=== PATIENT | male | born 1960 | race Caucasian/White ===

== ENCOUNTER 2016-10-05 07:18 | Day surgery (SDC) | payer MEDICAID ==
[~2016-10-05] VITALS: Ht 172.7 cm; Wt 72.6 kg
[2016-10-05] MEDS ORDERED: AMLO2.5T45 PO (08:24)
[2016-10-05] MEDS ORDERED: IBUP-1509 PO (08:24)
[2016-10-05] MEDS ORDERED: LISI-604 PO (08:24)
[2016-10-05] MEDS ORDERED: METH10TA2 PO (08:24)
[2016-10-05 08:51] LABS: BASOPHILS % 0.9 % (0.0-2.0); HEMATOCRIT. 33.8 % (42.0-52.0); HEMOGLOBIN. 11.9 g/dL (14.0-18.0); LYMPHOCYTES % 32.2 % (20.0-50.0); MEAN CORPUSCULAR HEMOGLOBIN 30.8 pg (28.0-32.0); MEAN CORPUSCULAR VOLUME 87.4 fL (80.0-94.0); MEAN PLATELET VOLUME 7.4 fl (7.4-10.4); NEUTROPHILS % 50.9 % (40.0-76.0); PLATELET 314 x1000/uL (130-400); RED BLOOD CELL COUNT 3.87 mill/uL (4.7-6.1); RED CELL DISTRIBUTION WIDTH 12.8 % (11.6-14.6)
[2016-10-05 08:58] LABS: CLARITY URINE CLEAR (CLEAR); COLOR URINE YELLOW (YELLOW); GLUCOSE URINE NEGATIVE (NEGATIVE); KETONES URINE NEGATIVE (NEGATIVE); LEUKOCYTE ESTERASE URINE NEGATIVE (NEGATIVE); NITRITE URINE NEGATIVE (NEGATIVE); OCCULT BLOOD URINE NEGATIVE (NEGATIVE); PROTEIN URINE NEGATIVE (NEGATIVE); SPECIFIC GRAVITY URINE 1.019 (1.005-1.030); UROBILINOGEN URINE 0.2 E.U./dL (0.2-1.0)
[2016-10-05 09:04] LABS: PARTIAL THROMBOPLASTIN TIME 30.1 sec (24.0-34.0); PROTHROMBIN TIME 10.8 sec
[2016-10-05 09:10] LABS: *AMPHETAMINES SCREEN URINE PRESUMTIVE POSITIVE (NEGATIVE); *BARBITURATES SCREEN URINE NEGATIVE (NEGATIVE); *BENZODIAZEPINES SCREEN URINE PRESUMTIVE POSITIVE (NEGATIVE); *COCAINE SCREEN URINE NEGATIVE (NEGATIVE); CANNABINOID URINE SCREEN PRESUMTIVE POSITIVE (NEGATIVE); METHADONE URINE SCREEN PRESUMTIVE POSITIVE (NEGATIVE); OPIATES URINE SCREEN NEGATIVE (NEGATIVE); PHENCYCLIDINE URINE SCREEN NEGATIVE (NEGATIVE)
[2016-10-05 09:11] LABS: CHLORIDE 102 mEq/L (98-107)
[2016-10-05 09:17] LABS: CARBON DIOXIDE 30 mEq/L (21-32)
[2016-10-05] MEDS ORDERED: LACTATED RINGERS 1,000 ML IV SCH (09:30)
[2016-10-05] MEDS ORDERED: BUPIVACAINE HCL/PF 0.25% (2.5MG/ML) 10ML ONE (09:43)
[2016-10-05] MEDS ORDERED: BUPIVACAINE/EPINEPH/PF 0.25%/0.0005 10ML ONE ×2 (09:43→09:44)
[2016-10-05] MEDS ORDERED: FENTANYL CITRATE/PF 50MCG/ML 2ML VIAL ONE (09:49)
[2016-10-05] MEDS ORDERED: MIDAZOLAM HCL 2 MG/2 ML VIAL ONE ×2 (09:51→15:15)
[2016-10-05] MEDS ORDERED: PROPOFOL 200MG/20ML VIAL IV ONE (09:52)
[2016-10-05] MEDS ORDERED: ONDANSETRON HCL 4MG/2ML VIAL IV PRN ×3 (10:00→13:15)
[2016-10-05] MEDS ORDERED: HYDROCODONE/ACETAMINOPHEN 5/325MG TABLET PO PRN ×3 (10:00→13:15)
[2016-10-05] MEDS ORDERED: LIDOCAINE HCL 1% 20ML VIAL (Pyxis) INJ ONE (10:00)
[2016-10-05] MEDS ORDERED: NORMAL SALINE 0.9% 10 ML SYR ONE (10:26)
[2016-10-05] MEDS ORDERED: BACITRACIN 50,000 UNITS/VIAL ONE (10:26)
[2016-10-05] MEDS ORDERED: PHENYLEPHRINE HCL 10 MG/ML 1ML (IV VIAL) IV ONE (10:30)
[2016-10-05] MEDS ORDERED: ONDANSETRON HCL 4MG/2ML VIAL ONE (11:00)
[2016-10-05] MEDS ORDERED: KETOROLAC 30MG/ML VIAL ONE (11:00)
[2016-10-05] MEDS ORDERED: HYDROMORPHONE HCL/PF 2MG/ML (OR) ONE (12:08)
[2016-10-05] MEDS ORDERED: FLUMAZENIL 0.1 MG/ML 5ML VIAL IV ONE (12:19)
[2016-10-05] MEDS ORDERED: MORPHINE SULFATE/PF 1MG/ML 10ML AMP ONE (12:27)
[2016-10-05] MEDS ORDERED: SKIN ADHESIVE 0.7 GM EA TOP ONE (12:33)
[2016-10-05] MEDS ORDERED: MEPERIDINE HCL/PF 25MG/ML CPJ IV PRN (13:00)
[2016-10-05] MEDS ORDERED: LABETALOL HCL 20MG/4ML CARPUJECT IV PRN (13:00)
[2016-10-05] MEDS: HYDROMORPHONE HCL/PF 2MG/ML CPJ IV PRN ×4 (13:45→14:05)
[2016-10-05 14:20] VITALS: BP 153/100
== END 2016-10-05 15:07 | disposition home or self-care (01) ==
LOC: OR 07:18
PROVIDERS: ATTEND Orthopaedic Surgery
DX: S62.320A Displaced fracture of shaft of second metacarpal bone, right hand, initial encounter for closed fracture (principal); X58.XXXA Exposure to other specified factors, initial encounter; Y93.9 Activity, unspecified; Y92.89 Other specified places as the place of occurrence of the external cause; Y99.9 Unspecified external cause status; S83.241A Other tear of medial meniscus, current injury, right knee, initial encounter; M94.261 Chondromalacia, right knee; M22.41 Chondromalacia patellae, right knee; M65.9 Synovitis and tenosynovitis, unspecified; I10 Essential (primary) hypertension
CPT/HCPCS: 26615; 29881; 36415; 73130; 80048; 80305; 81003; 85025; 85610; 85730; 93005; A4216; C1713; G0168; J1170; J1885; J2175; J2250; J2370; J2405; J3010; J3490; J0171; J2274; J2704